=== PATIENT | female | born 1985 | race Caucasian/White ===

== ENCOUNTER 2017-01-27 12:12 | Inpatient (IN) | payer BC ==
[~2017-01-27] VITALS: Ht 175.3 cm; Wt 104.8 kg
--- NOTE | ~2017-01-27 | OR ---
PATIENT'S NAME: ETTA STRANGE [facility] AGE: 31 Y [address] ROOM: [place] [address] LOCATION: [facility] ADMIT DATE: 01/27/2017 OR/Procedure Report DISCHARGE DATE: FAMILY PHYSICIAN: Rosales Santana MD ATTENDING PHYSICIAN: GUILLERMO MAURICIO SURGEON: Guillermo Mauricio MD CAR OILER: DATE OF PROCEDURE: 01/27/2017 PREOPERATIVE DIAGNOSES: 1. Intrauterine at 41 weeks 1 day. 2. Meconium-stained fluid. POSTOPERATIVE DIAGNOSES: 1. Intrauterine at 41 weeks 1 day. 2. Meconium-stained fluid. PROCEDURE PERFORMED: Spontaneous vaginal delivery over an intact perineum. ANESTHESIA: Epidural. FINDINGS: Viable female infant with Apgars of 8 and 9, and weighted 9 pounds 1 ounce. Placenta intact with 3-vessel cord. Meconium-stained fluid. Second- degree perineal laceration. EBL: 400 mL. COMPLICATIONS: None. INDICATIONS: The patient is a 31-year-old, G2, P1-0-0-1 with intrauterine at 41 weeks 1 day, who presented to Labor and Delivery for induction of labor secondary to postdates. She was found to be 350 and -2. She had an artificial rupture of membranes with clear fluid. She then have Pitocin started for augmentation. She progressed throughout labor. She did receive an epidural. She progressed to complete and started maternal expulsive efforts. DESCRIPTION OF PROCEDURE: The patient was placed in dorsal lithotomy position. She was prepped and draped in the usual fashion with maternal expulsive effort. head was delivered in the MEJIA position, followed by the remainder of the fetus. The was placed on the mother's abdomen. The cord was clamped and cut. Cord blood was obtained. The placenta was then delivered spontaneously intact with a 3-vessel cord. Shortly before delivery, fluid was noted to be meconium stained. A second-degree perineal laceration was noted and was repaired in the usual fashion with 3-0 Vicryl. The patient PATIENT'S NAME: ETTA STRANGE [facility] AGE: 31 Y [address] ROOM: [place] [address] LOCATION: [facility] ADMIT DATE: 01/27/2017 OR/Procedure Report DISCHARGE DATE: FAMILY PHYSICIAN: Rosales Santana MD ATTENDING PHYSICIAN: GUILLERMO MAURICIO was noted to have atony of her lower uterine segment and a free flow of blood. An 800 mcg of Cytotec was placed rectally and the bottle was drained of about 75 mL of urine. Bleeding improved. Instrument, sponge, and needle counts were correct at the conclusion of the case. DISPOSITION: Mother stable. Baby in room with mother. MD AMA CARNEY/holliel /[id number] d: 01/28/17 0349 t: 01/28/17 1443, OPERATIVE SUMMARY
[2017-01-27 13:11] LABS: BASOPHIL % 0.2 %; EOSINOPHIL % 0.2 %; HEMATOCRIT 32.5 % (33.0-46.0); HEMOGLOBIN 10.4 g/dL (11.0-15.0); IMMATURE GRANULOCYTE # 0.1 K/uL (0.0-0.3); IMMATURE GRANULOCYTE % 0.8 %; LYMPHOCYTE # 1.4 K/uL (0.8-4.0); LYMPHOCYTE % 12.3 %; MCH 26.1 pg (27.0-34.0); MCV 81.7 fl (83.0-98.0); MONOCYTE # 0.7 K/uL (0.0-1.0); MPV 9.3 fl (9.4-12.4); NEUTROPHIL # (ANC) 9.3 K/uL (1.8-7.8); NEUTROPHIL % 80.5 %; NRBC % 0 /100WBC (0-0.00); PLATELET COUNT 213 K/uL (150-450); RDW-CV 15.9 % (11.9-14.6); WBC 11.5 K/uL (4.0-11.0)
[2017-01-27 13:12] LABS: RBC 3.98 M/uL (3.50-5.50)
[2017-01-27] MEDS ORDERED: PRENATAL 1+1)(P1 TAB PO (14:35)
[2017-01-27] MEDS ORDERED: TUMS200 MG PO (14:35)
[2017-01-28 06:17] LABS: BASOPHIL % 0.2 %; EOSINOPHIL % 0.1 %; HEMATOCRIT 27.7 % (33.0-46.0); HEMOGLOBIN 8.8 g/dL (11.0-15.0); IMMATURE GRANULOCYTE # 0.1 K/uL (0.0-0.3); IMMATURE GRANULOCYTE % 0.7 %; LYMPHOCYTE # 1.3 K/uL (0.8-4.0); LYMPHOCYTE % 7.1 %; MCHC 31.8 gm/dL (32.0-36.5); MONOCYTE # 1.2 K/uL (0.0-1.0); MONOCYTE % 6.4 %; MPV 9.4 fl (9.4-12.4); NEUTROPHIL # (ANC) 16.3 K/uL (1.8-7.8); NEUTROPHIL % 85.5 %; NRBC % 0 /100WBC (0-0.00); PLATELET COUNT 199 K/uL (150-450); RBC 3.38 M/uL (3.50-5.50); RDW-CV 15.9 % (11.9-14.6)
--- NOTE | 2017-01-28 16:52 | NUR ---
Significant Event: Follow up: VSS, Hbg 8.8, from 10.4, SL dc'd. Voiding well, no clots reported. Medicated x 1 with michael @ 9804. Took a oscar @ 1400. Plan home tomorrow.
--- NOTE | 2017-01-29 03:30 | NUR ---
PT HAVING A HARD TIME GETTING BABY TO LATCH AND STAY LATCHED. OFFERED OPTIONS OF CONTINUING TO TRY, PUMPING AND GIVING IT TO THE BABY OR GIVING THE BABY SOME DONOR MILK. MOM PUMPS AND BABY IS GIVEN 2 ML OF PUMPED BREASTMILK. THEN MOM REQUESTS DONOR BREASTMILK. BABY EATS 20 ML OF DONOR BREASTMILK. THIS ALL OCCURRED @ 0200
--- NOTE | 2017-01-29 04:35 | NUR ---
Last VS: T:98.4 P:70 R: 20 BP: 107/60 Pain ratin Last pain med: MOTRIN Medicated at: 2100 Effective: YES Breasts: SOFT Nipples: INTACT Fundus:FIRM,MIDLINE , 1 BELOW Lochia: SM,RUBRA Epis/Perineum: APPROX, , Voiding well: Y Significant event: PT HAD TEARY MOMENTS THIS AM AROUND 2 AM. BABY WAS GETTING FRUSTRATED WITH FEEDING. REASSURED PT AND EDUCATED ON PUMPING. PT PUMPS AND BABY WAS GIVEN PUMPED BM. ALSO GIVEN 20 ML DONOR BREAST MILK AT THIS TIME. PT FEELS MUCH BETTER NOW. WILL ATTEMPT TO FEED AGAIN @ 0500
[2017-01-29] MEDS ORDERED: PERCOCET 5-3251 EACH PO (12:55)
[2017-01-29] MEDS ORDERED: FEOSOL325 MG PO (12:55)
== END 2017-01-29 14:10 | disposition disaster alternative care site (69) | DRG 775 ==
LOC: GOBS 12:12
PROVIDERS: ADMIT Obstetrics & Gynecology
PROC: 0KQM0ZZ Repair Perineum Muscle, Open Approach (ICD-10-PCS; principal; 2017-01-27)
PROC: 10907ZC Drainage of Amniotic Fluid, Therapeutic from Products of Conception, Via Natural or Artificial Opening (ICD-10-PCS; principal; 2017-01-27)
PROC: 10E0XZZ Delivery of Products of Conception, External Approach (ICD-10-PCS; principal; 2017-01-27)
DX: O70.1 Second degree perineal laceration during delivery (principal); Z37.0 Single live birth; O77.0 Labor and delivery complicated by meconium in amniotic fluid; Z3A.41 41 weeks gestation of pregnancy
CPT/HCPCS: J2001; J2405; J2590; J7120